=== PATIENT | female | born 1950 | race Hispanic/Latino ===

== ENCOUNTER 2022-09-27 05:54 | Observation (INO) | payer MEDICARE, OTHER ==
[2022-09-20 13:31] LABS: BASOPHILS % (AUTO) 0.7 % (0.0-5.0); EOSINOPHILS % (AUTO) 1.6 % (0.0-8.0); HEMATOCRIT 45.3 % (36-48); LYMPHOCYTES % (AUTO) 19.5 % (21.0-51.0); MEAN CORPUSCULAR HEMOGLOBIN 30.7 pg (27.0-33.0); MONOCYTES % (AUTO) 6.9 % (3.0-13.0); PLATELET COUNT (AUTO) 270 K/uL (130-400); RED BLOOD CELL COUNT(AUTO) 4.72 MIL/uL (4.00-5.50); RED CELL DISTRIBUTION WIDTH 13.2 % (11.0-15.5); WHITE BLOOD COUNT (AUTO) 7.3 K/uL (4.8-10.8)
[2022-09-20 13:40] LABS: CREATININE 0.8 mg/dL (0.5-1.5); POTASSIUM 4.6 mmol/L (3.5-5.1)
[2022-09-20 13:42] LABS: INR 1.02 (0.85-1.15); PROTHROMBIN TIME 11.1 SEC (9.6-11.6)
[2022-09-20 13:43] LABS: PARTIAL THROMBOPLASTIN TIME 30.4 SEC (26.3-35.5)
[2022-09-20 14:10] VITALS: BP 129/61
[2022-09-27] VITALS (27 sets, daily range): BP systolic 128–162; BP diastolic 65–91
[~2022-09-27] VITALS: Ht 152.4 cm; Wt 62.3 kg
[~2022-09-27 05:54] MED LIST: APIX5TAB PO; ASCO100031 PO; DEXL60CA3 PO; FOLIC ACID PO; LEVO88TA4 PO; LIOT5TAB11 PO; LORA-192 PO; MECL-226 PO; MVI PO
[2022-09-27] MEDS ORDERED: CEFAZOLIN SODIUM 2 GM VIAL ONE (07:57)
[2022-09-27] MEDS ORDERED: LACTATED RINGERS 1000ML 1,000 ML IV ONE (07:57)
[2022-09-27] MEDS ORDERED: TRANEXAMIC ACID 1000MG/10ML ONE (11:31)
[2022-09-27] MEDS: ***HM***(Dexlansoprazole (Dexilant) 60 MG) PO SCH (12:00)
[2022-09-27] MEDS ORDERED: FENTANYL CITRATE PF 50 MCG/1 ML 2ML VIAL ONE ×2 (13:44→14:35)
[2022-09-27] MEDS ORDERED: LIDOCAINE PF 100MG/5ML (2%) SYRINGE 5ML ONE (13:44)
[2022-09-27] MEDS ORDERED: PROPOFOL 10 MG/ML 20ML VIAL IV ONE (13:44)
[2022-09-27] MEDS ORDERED: ROCURONIUM 10MG/1ML SYR 10 MG/ML ML ONE ×2 (13:44→14:37)
[2022-09-27] MEDS ORDERED: CEFAZOLIN SODIUM 2 GM VIAL IVPB ONE (13:56)
[2022-09-27] MEDS ORDERED: POTASSIUM CHLORIDE 10% ELIXIR 20 MEQ/15 ML UDCUP PO PRN (14:00)
[2022-09-27] MEDS ORDERED: LIDOCAINE HCL-MPF 1% 2ML VIAL IV PRN (14:00)
[2022-09-27] MEDS ORDERED: POTASSIUM CHLORIDE 20MEQ/100ML 100 ML IV PRN (14:00)
[2022-09-27] MEDS ORDERED: KCL 20 MEQ ERTAB PO PRN (14:00)
[2022-09-27] MEDS ORDERED: HYDROCODONE/ACETAMINOPHEN 5/325 MG TAB PO PRN (14:00)
[2022-09-27] MEDS ORDERED: TRANEXAMIC ACID 1000MG/10ML IV ONE (14:03)
[2022-09-27] MEDS ORDERED: EPHEDRINE SULFATE 50 MG/ML AMPULE ONE (14:24)
[2022-09-27] MEDS ORDERED: GLYCOPYRROLATE 1 MG/5 ML SYRINGE ONE (15:35)
[2022-09-27] MEDS ORDERED: ONDANSETRON 4MG INJ ONE (15:35)
[2022-09-27] MEDS ORDERED: NEOSTIGMINE 5MG/5ML SYR IV ONE (15:35)
[2022-09-27] MEDS ORDERED: ROPIVACAINE 0.5% 5MG/ML 30ML IJ ONE (15:45)
[2022-09-27] MEDS: ACETAMINOPHEN 1,000 MG/100 ML VIAL IV SCH (16:25)
[2022-09-27] MEDS ORDERED: IBUPROFEN 800MG + NS 250ML IV SCH (17:00)
[2022-09-27] MEDS: FENTANYL CITRATE PF 50 MCG/1 ML 2ML VIAL ONE ×2 (17:11→17:45)
[2022-09-27] MEDS: ONDANSETRON 4MG INJ ONE ×2 (17:11→17:44)
[2022-09-27] MEDS: CALDOLOR 800MG+NS 250ML 250 ML IV SCH (17:57)
[2022-09-27] MEDS: 0.9%NACL 1000ML 1,000 ML IV SCH (18:00)
[2022-09-27] MEDS: CEFAZOLIN SODIUM 1 GM VIAL IVP SCH (20:03)
[2022-09-27] MEDS: MORPHINE 4 MG SYG IVP PRN (20:16)
[2022-09-27] MEDS: FAMOTIDINE 20MG TAB PO SCH (21:31)
[2022-09-27] MEDS: LORAZEPAM 1 MG TABLET PO SCH (21:31)
[2022-09-28] MEDS: ONDANSETRON 4MG INJ IVP PRN ×2 (00:36→15:14)
[2022-09-28] MEDS: CALDOLOR 800MG+NS 250ML 250 ML IV SCH ×3 (00:38→12:13)
[2022-09-28] MEDS: MORPHINE 4 MG SYG IVP PRN ×4 (00:38→19:03)
[2022-09-28] MEDS: ACETAMINOPHEN 1,000 MG/100 ML VIAL IV SCH ×3 (01:33→02:00)
[2022-09-28] MEDS: CEFAZOLIN SODIUM 1 GM VIAL IVP SCH (03:24)
[2022-09-28 04:40] VITALS: BP 137/74
[2022-09-28 05:39] LABS: HEMATOCRIT 34.1 % (36-48); MEAN CORPUSCULAR HEMOGLOBIN 31.1 pg (27.0-33.0); MEAN CORPUSCULAR VOLUME 97.2 fL (79-99); RED BLOOD CELL COUNT(AUTO) 3.51 MIL/uL (4.00-5.50); RED CELL DISTRIBUTION WIDTH 13.2 % (11.0-15.5); WHITE BLOOD COUNT (AUTO) 8.8 K/uL (4.8-10.8)
[2022-09-28 06:01] LABS: CREATININE 0.7 mg/dL (0.5-1.5); POTASSIUM 3.9 mmol/L (3.5-5.1)
[2022-09-28] MEDS: LIOTHYRONINE SODIUM 5 MCG PO SCH (06:30)
[2022-09-28] MEDS: LEVOTHYROXINE 88 MCG TABLET PO SCH (06:54)
[2022-09-28] MEDS ORDERED: ROPIVICAINE 250MG+KETOROLAC 15MG+EPINEPHRINE 0.3+CLONIDINE 80 IV PRN ×5 (08:00)
[2022-09-28 08:55] VITALS: BP 137/62
[2022-09-28] MEDS: ASPIRIN 81 MG EC TAB PO SCH ×2 (09:00→09:12)
[2022-09-28] MEDS: POLYETHYLENE GLYCOL 3350 17 GM POWD.PACK PO SCH (09:12)
[2022-09-28] MEDS: FAMOTIDINE 20MG TAB PO SCH ×2 (09:12→20:46)
[2022-09-28] MEDS: 0.9%NACL 1000ML 1,000 ML IV SCH ×2 (10:00)
[2022-09-28 12:00] VITALS: BP 140/65
[2022-09-28] MEDS: ***HM***(Dexlansoprazole (Dexilant) 60 MG) PO SCH (12:00)
[2022-09-28] MEDS: HYDROCODONE/ACETAMINOPHEN 10/325 MG TAB PO PRN ×3 (12:57→20:47)
[2022-09-28 16:00] VITALS: BP 193/90
[2022-09-28] MEDS: FERROUS GLUCONATE 324 TABLET PO SCH (20:46)
[2022-09-28] MEDS: LORAZEPAM 1 MG TABLET PO SCH (20:47)
[2022-09-28 20:48] VITALS: BP 165/75
[2022-09-29 00:17] VITALS: BP 162/87
[2022-09-29] MEDS: CALDOLOR 800MG+NS 250ML 250 ML IV SCH (01:00)
[2022-09-29 04:58] VITALS: BP 158/83
[2022-09-29] MEDS: LEVOTHYROXINE 88 MCG TABLET PO SCH (06:23)
[2022-09-29] MEDS: MORPHINE 4 MG SYG IVP PRN ×3 (06:24→14:40)
[2022-09-29] MEDS: LIOTHYRONINE SODIUM 5 MCG PO SCH (06:25)
[2022-09-29 08:00] VITALS: BP 156/81
[2022-09-29] MEDS: POLYETHYLENE GLYCOL 3350 17 GM POWD.PACK PO SCH (08:43)
[2022-09-29] MEDS: FERROUS GLUCONATE 324 TABLET PO SCH (08:43)
[2022-09-29] MEDS: FAMOTIDINE 20MG TAB PO SCH (08:43)
[2022-09-29] MEDS ORDERED: APIXABAN 2.5 MG TABLET PO SCH ×2 (09:00→21:00)
[2022-09-29 12:00] VITALS: BP 165/77
[2022-09-29] MEDS: ***HM***(Dexlansoprazole (Dexilant) 60 MG) PO SCH (12:00)
[2022-09-29] MEDS: HYDROCODONE/ACETAMINOPHEN 10/325 MG TAB PO PRN (12:21)
[2022-09-29 16:00] VITALS: BP 135/70
[2022-09-30] MEDS ORDERED: BISACODYL 10 MG SUPP.RECT RC PRN (14:00)
== END 2022-09-29 15:30 ==
LOC: DAH 05:54 → DAHIP 05:55 → DAH 05:55 → 4BH 17:25
PROVIDERS: ADMIT Orthopaedic Surgery; ATTEND Orthopaedic Surgery
DX: M17.12 Unilateral primary osteoarthritis, left knee (principal); Z20.822 Contact with and (suspected) exposure to COVID-19; M16.0 Bilateral primary osteoarthritis of hip; F41.9 Anxiety disorder, unspecified; Z79.899 Other long term (current) drug therapy; Z98.890 Other specified postprocedural states
CPT/HCPCS: 80048 ×2; 85025; 85610; 85730; 87426; 36415 ×2; 87641; 27447; 96365; 96366 ×3; 96375; 64447; 96376 ×2; 96367; 85027; 97161; 97039 ×5; 97116 ×4; 97530 ×3; A6260; G0378 ×43; A4663; J7030; A4649 ×6; A4600; J7120; J3010 ×3; J0690 ×4; J3490 ×4; J2710; J2001; J2704; J2405 ×4; J2270 ×8; J2795 ×2; G0168; C1776 ×4; A6255; A6254; A4215 ×2; A4223; A4222; A4221; J0171; J1885; J1741; J0735; 76942